=== PATIENT | female | born 1990 | race Caucasian/White ===

== ENCOUNTER 2020-04-21 21:06 | Inpatient (IN) | payer MEDICAID ==
[2020-04-21] MEDS ORDERED: Methylergonovine 0.2 MG/1 ML Amp IM PRN (22:47)
[2020-04-21] MEDS ORDERED: Lidocaine 1% 30 ML SDV INJECT PRN (22:47)
[2020-04-21] MEDS ORDERED: Ondansetron 4 MG/2 ML SDV IVPUSH PRN (22:47)
[2020-04-21] MEDS ORDERED: Carboprost Tromethamine 250 MCG/1 ML Amp IM PRN (22:47)
[2020-04-21] MEDS ORDERED: Sodium Chloride 0.9% 10 ML Syringe FLUSH PRN (22:47)
[2020-04-21] MEDS ORDERED: Tranexamic Acid 1,000 MG in Sodium Chloride 0.9% 100 ML IV PRN (22:47)
[2020-04-21] MEDS ORDERED: Misoprostol 400 MCG (4 X 100 MCG TAB) RECTAL PRN (22:47)
[2020-04-21] MEDS ORDERED: Oxytocin/Normal Saline 30 UNIT/500 ML BAG IV SCH (23:00)
[2020-04-21] MEDS ORDERED: Lactated Ringers 1,000 ML IV SCH (23:00)
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
[2020-04-22] MEDS ORDERED: Zolpidem 5 MG Tab PO PRN (04:27)
[2020-04-22] MEDS ORDERED: Simethicone 80 MG Tab.Chew PO PRN (04:27)
[2020-04-22] MEDS ORDERED: Benzocaine/Menthol 20%-0.5% Spray 56 GM Canister TOP PRN (04:27)
--- NOTE | 2020-04-22 04:55 | PCM.DEL ---
L & D Note - General Info Date of Service: 04/22/20 (Time of delivery 0419) Mother's Due Date: 05/03/20 (38w3d) - Delivery Note Labor: Spontaneous Delivery Outcome: Livebirth Delivery Method: Spontaneous Vaginal Delivery-Single Infant Delivery Mode: Spontaneous Presentation: Right Occiput Anterior (MARGARITA) Nuchal Cord: Present, Reduced Prep: Povidone-Iodine (Betadine Anesthesia Type: Nitrous Oxide Amniotic Fluid Description: Clear Episiotomy Type: None Laceration: None Placenta: Intact, Expressed Cord: 3 Vessels Estimated Blood Loss: 200 Resuscitation Needed: No Anderson: Bulb Syringe, Stimulated, Warmed Provider: Laura Dominguez Delivery Comments (Free Text/Narrative):: Valerie presented in early labor and progressed to 5-6 cm with BBOWI. AROM carried out and cxns were spaced. small amount of pitocin used and labor became effective, with patient proceeding to complete dilation. she pushed with one cxn, and delivered a viable 7lb 11oz male over intact perineum with one loop of nuchal cord, easily reduced on the perineum. baby delivered to mom's chest for skin to skin contact and bonding/nursing. 3VC clamped X 2, then cut by GRAY/Omar, and cord blood sample obtained. placenta delivered intact with gentle traction. fundus firm, flow minimal perineum and vagina intact. both mom and baby doing well. blood loss 100-200cc hmb - General Info Date of Service: 04/22/20 - Patient Data Vitals - Most Recent: Last Vital Signs Temp 98.4 F 04/21/20 23:40 Pulse 85 04/22/20 01:30 Resp 16 04/22/20 01:30 BP 128/72 04/22/20 01:30 Pulse Ox Weight - Most Recent: 247 lb Lab Results Last 24 Hours: Laboratory Results - last 24 hr 04/21/20 04/21/20 Range/Units 21:35 22:14 WBC 11.2 H (5.0-10.0) 10^3/uL RBC 3.68 L (4.2-5.4) 10^6/uL Hgb 11.6 L (12.0-16.0) g/dL Hct 34.7 L (37.0-47.0) % MCV 94.3 (80-100) fL MCH 31.5 (27.0-34.0) pg MCHC 33.4 (33.0-35.0) g/dL Plt Count 244 (150-450) 10^3/uL Neut % (Auto) 74.4 (42.2-75.2) % Lymph % (Auto) 16.9 L (20.5-50.1) % [place] % (Auto) 8.1 H (2-8) % Eos % (Auto) 0.4 L (1.0-3.0) % Baso % (Auto) 0.2 (0.0-1.0) % SARS CoV-2 RNA Rapid AKSHAT Negative (NEGATIVE) Med Orders - Current: Current Medications Acetaminophen (Tylenol) 650 mg PO Q4H PRN PRN Reason: Pain (Mild 1-3) and fever Benzocaine/Menthol (Dermoplast Pain Relief [place]) 0 gm TOP Q4H PRN PRN Reason: Perineal comfort measures Carboprost Tromethamine (Hemabate Ds) 250 mcg IM ASDIRECTED PRN PRN Reason: HEMORRHAGE Docusate Sodium (Colace) 100 mg PO BID PRN PRN Reason: Constipation Lactated Ringer's (Ringers, Lactated) 1,000 mls @ 125 mls/hr IV ASDIRECTED NESHA Last Admin: 04/22/20 02:31 Dose: 125 mls/hr Documented by: Tranexamic Acid 1,000 mg/ (Sodium Chloride) 110 mls @ 660 mls/hr IV ONETIME PRN PRN Reason: Bleeding Oxytocin/Sodium Chloride (Pitocin In Ns 30 Unit/500 Ml) 30 unit in 500 mls @ 2 mls/hr IV TITRATE NESHA; Protocol Last Titration: 04/22/20 04:44 Dose: 250 munits/min, 250 mls/hr Documented by: Ibuprofen (Motrin) 800 mg PO Q8H PRN PRN Reason: Mild Pain or Fever Lidocaine HCl (Xylocaine-Mpf 1%) 30 ml INJECT ASDIRECTED PRN PRN Reason: Perineal Repair Methylergonovine Maleate (Methergine) 0.2 mg IM ASDIRECTED PRN PRN Reason: Hemorrhage Misoprostol (Cytotec) 800 mcg RECTAL ASDIRECTED PRN PRN Reason: Hemorrhage Ondansetron HCl (Zofran) 4 mg IVPUSH Q4H PRN PRN Reason: Nausea/Vomiting Prenat Multivit/[place]/Iron/Folic Ac ( Plus Iron) 1 each PO DAILY NESHA Simethicone (Simethicone) 80 mg PO Q4H PRN PRN Reason: Gas Sodium Chloride (Saline Flush) 10 ml FLUSH ASDIRECTED PRN PRN Reason: Keep Vein Open Witch Heide (Medi-Pads) 1 each TOP Q4HR PRN PRN Reason: Perineal Comfort Measure Zolpidem Tartrate (Ambien) 5 mg PO BEDTIME PRN PRN Reason: Insomnia - Problem List & Annotations (1) Term SNOMED Code(s): 47298237 Code(s): Z34.90 - ENCNTR FOR SUPRVSN OF NORMAL , UNSP, UNSP TRIMESTER Status: Acute Current Visit: Yes (2) Labor established SNOMED Code(s): 98584873 Code(s): GDE6842 - Status: Acute Current Visit: Yes (3) Blood type A+ SNOMED Code(s): 678939740 Code(s): Z67.10 - TYPE A BLOOD, RH POSITIVE Status: Acute Current Visit: Yes (4) Rubella immune SNOMED Code(s): 361258111 Code(s): Z78.9 - OTHER SPECIFIED HEALTH STATUS Status: Acute Current Visit: Yes (5) Group B Streptococcus not isolated SNOMED Code(s): 590540930 Code(s): SWD1079 - Status: Acute Current Visit: Yes (6) Normal vaginal delivery SNOMED Code(s): 87027132, 863870754 Code(s): O80 - ENCOUNTER FOR FULL-TERM UNCOMPLICATED DELIVERY Status: Acute Current Visit: Yes (7) Mother currently breast-feeding SNOMED Code(s): 339556562 Code(s): Z39.1 - ENCOUNTER FOR CARE AND EXAMINATION OF LACTATING MOTHER Status: Acute Current Visit: Yes - Problem List Review Problem List Initiated/Reviewed/Updated: Yes - My Orders Last 24 Hours: My Active Orders 04/21/20 21:15 OB Check [OM.PC] Click to Edit EFM External [ Heart Monitor External] [WOMSER] Per Unit Routine 04/21/20 22:06 Admission Status [Patient Status] [ADT] Routine 04/21/20 22:47 Acetaminophen [TylenoL] 650 mg PO Q4H PRN Carboprost Tromethamine [Hemabate DS] 250 mcg IM ASDIRECTED PRN Lidocaine 1% [Xylocaine-MPF 1%] 30 ml INJECT ASDIRECTED PRN Methylergonovine [Methergine] 0.2 mg IM ASDIRECTED PRN Ondansetron [Zofran] 4 mg IVPUSH Q4H PRN Sodium Chloride 0.9% [Saline Flush] 10 ml FLUSH ASDIRECTED PRN Tranexamic Acid [Cyklokapron] 1,000 mg Sodium Chloride 0.9% [Normal Saline] 100 ml IV ONETIME miSOPROStoL [Cytotec] 800 mcg RECTAL ASDIRECTED PRN Resuscitation Status Routine 04/21/20 22:48 Communication Order [RC] ASDIRECTED Notify Provider Vital Signs OB [RC] ASDIRECTED Notify Provider [RC] PRN Up ad Cyndee [RC] ASDIRECTED Vital Signs [RC] PER UNIT ROUTINE Saline Lock Insert [OM.PC] Routine 04/21/20 22:50 Pump Management, Intrathecal [RC] ASDIRECTED 04/21/20 23:00 Lactated Ringers [Ringers, Lactated] 1,000 ml IV ASDIRECTED Oxytocin/Normal Saline [Pitocin in NS 30 UNIT/500 ML] 30 unit in 500 ml IV TITRATE 04/22/20 03:56 Nitrous Oxide Delivery [RC] ASDIRECTED OB Discontinue Nitrous Oxide [RC] ASDIRECTED 04/22/20 04:27 Benzocaine/Menthol [Dermoplast Pain Relief [place]] See Dose Instructions TOP Q4H PRN Docusate Sodium [Colace] 100 mg PO BID PRN Ibuprofen [Motrin] 800 mg PO Q8H PRN Simethicone 80 mg PO Q4H PRN Zolpidem [Ambien] 5 mg PO BEDTIME PRN witch Heide [Medi-Pads] 1 each TOP Q4HR PRN Assess Lochia [WOMSER] Per Unit Routine Assess Uterine Involution [WOMSER] Per Unit Routine Breast Pump [WOMSER] Per Unit Routine Ice Therapy [OM.PC] Per Unit Routine Perineal Care [OM.PC] Per Unit Routine Sitz Bath [OM.PC] Per Unit Routine 04/22/20 Breakfast Regular Diet [DIET] 04/22/20 09:00 Vit with Ca/FA/Iron [ Plus Iron] 1 each PO DAILY - Plan Plan:: Assessment: 30yo @38w2d in labor GBS negative blood type A+ rubella immune NST reactive COVID negative. mild anemia of with admit hgb 11.8 Plan: admit, continue to monitor consider AROM if indicated. routine orders placed anticipate vaginal delivery. with consideration of her increasing BP in clinic today, swelling, term , onset cxns, hx of last baby generous in size requiring VAVD--will be appropriate to have her delivered. hmb Delivery: 04-22-2020 @ 0419 viable male, vaginal delivery over intact perineum with one cxn. nuchal X 1, loose/easily reduced APGARs 9 & 9 BW 7lb 11oz, 3485g skin to skin after delivery . routine orders. b
[2020-04-22] MEDS: Ibuprofen 800 MG Tab PO PRN ×3 (05:36→21:01)
[2020-04-22] MEDS: Acetaminophen 325 MG Tab PO PRN ×2 (05:36→21:00)
[2020-04-22] MEDS: Docusate Sodium 100 MG Cap PO PRN ×2 (05:37→21:01)
[2020-04-22] MEDS: Prenatal Multivitamin with Calcium/Folic Acid/Iron Tab PO SCH (13:31)
[2020-04-22] MEDS ORDERED: Ferrous Sulfate 325 MG Tab PO STA (19:18)
[2020-04-23] MEDS ORDERED: Ferrous Sulfate 325 MG Tab PO SCH (08:00)
[2020-04-23] MEDS: Prenatal Multivitamin with Calcium/Folic Acid/Iron Tab PO SCH (08:34)
[2020-04-23] MEDS: Ibuprofen 800 MG Tab PO PRN (08:34)
[2020-04-23] MEDS: Docusate Sodium 100 MG Cap PO PRN (08:34)
[2020-04-23 08:54] VITALS: BP 113/73; PULSE 94
--- NOTE | 2020-04-23 12:57 | PCM.DCSUM1 ---
Discharge Summary - Hospital Course Free Text/Narrative:: Valerie is a delightful 30yo WF G6 now [id number] who presented in labor and went on to deliver a viable male infant @ 38w3d APGARs 8 & 9 BW 7lb 11oz, 3485g 04-22-2020 @ 0419 see admission, delivery and [facility] notes for details. hmb HPI Initial Comments: 30yo @38w2d in labor GBS negative blood type A+ rubella immune NST reactive COVID negative. mild anemia of with admit hgb 11.8 Brief History: Valerie presented in early labor and progressed to 5-6 cm with BBOWI. AROM carried out and cxns were spaced. small amount of pitocin used and labor became effective, with patient proceeding to complete dilation. she pushed with one cxn, and delivered a viable 7lb 11oz male over intact perineum with one loop of nuchal cord, easily reduced on the perineum. baby delivered to mom's chest for skin to skin contact and bonding/nursing. 3VC clamped X 2, then cut by GRAY/Omar, and cord blood sample obtained. placenta delivered intact with gentle traction. fundus firm, flow minimal. perineum and vagina intact. both mom and baby doing well. blood loss 100-200cc. b Diagnosis: Stroke: No - Discharge Data Discharge Date: 04/23/20 Discharge Disposition: Home, Self-Care 01 Condition: Good - Referral to Home Health Primary Care Physician: Vick Harrison - Discharge Diagnosis/Problem(s) (1) Term SNOMED Code(s): 31665223 ICD Code: Z34.90 - ENCNTR FOR SUPRVSN OF NORMAL , UNSP, UNSP TRIMESTER Status: Acute Current Visit: Yes (2) Labor established SNOMED Code(s): 25237042 ICD Code: WSH6233 - Status: Acute Current Visit: Yes (3) Blood type A+ SNOMED Code(s): 480303045 ICD Code: Z67.10 - TYPE A BLOOD, RH POSITIVE Status: Acute Current Visit: Yes (4) Rubella immune SNOMED Code(s): 154073929 ICD Code: Z78.9 - OTHER SPECIFIED HEALTH STATUS Status: Acute Current Visit: Yes (5) Group B Streptococcus not isolated SNOMED Code(s): 287113057 ICD Code: GQD4207 - Status: Acute Current Visit: Yes (6) Normal vaginal delivery SNOMED Code(s): 77412112, 002099911 ICD Code: O80 - ENCOUNTER FOR FULL-TERM UNCOMPLICATED DELIVERY Status: Acute Current Visit: Yes (7) Mother currently breast-feeding SNOMED Code(s): 870036086 ICD Code: Z39.1 - ENCOUNTER FOR CARE AND EXAMINATION OF LACTATING MOTHER Status: Acute Current Visit: Yes - Patient Summary/Data Complications: none Hospital Course: NST reactive on admit COVID negative hgb 11.8 course uneventful perineum was intact fundus remained firm flow minimal pumping and using breast milk remained afebrile with stable VS eating, ambulating and voiding well ready for discharge on PPD #1 home today 04-23-2020 in good condition follow up for 6 week check andsooner prn. all questions answered. routine discharge orders. 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 hmb - Patient Instructions Diet: Usual Diet as Tolerated Activity: As Tolerated Driving: Do Not Drive Showering/Bathing: May Shower Notify Provider of: Fever, Increased Pain, Swelling and Redness, Drainage, Nausea and/or Vomiting - Discharge Plan *PRESCRIPTION DRUG MONITORING PROGRAM REVIEWED*: Not Applicable *COPY OF PRESCRIPTION DRUG MONITORING REPORT IN PATIENT [place]: Not Applicable Patient Handouts: Baby Blues, Care After Vaginal Delivery - Discharge Summary/Plan Comment DC Time >30 min.: No Discharge Summary/Plan Comment: routine orders and instructions. may use fenugreek and Mother's milk tea as instructed follow up 6 week check and sooner prn. hmb - Patient Data Vitals - Most Recent: Last Vital Signs Temp 97.9 F 04/23/20 08:00 Pulse 94 04/23/20 08:00 Resp 18 04/23/20 08:00 BP 113/73 04/23/20 08:00 Pulse Ox 99 04/23/20 08:00 Weight - Most Recent: 247 lb Med Orders - Current: Current Medications Acetaminophen (Tylenol) 650 mg PO Q4H PRN PRN Reason: Pain (Mild 1-3) and fever Last Admin: 04/22/20 21:00 Dose: 650 mg Documented by: Benzocaine/Menthol (Dermoplast Pain Relief [place]) 0 gm TOP Q4H PRN PRN Reason: Perineal comfort measures Last Admin: 04/22/20 05:38 Dose: 1 spray Documented by: Carboprost Tromethamine (Hemabate Ds) 250 mcg IM ASDIRECTED PRN PRN Reason: HEMORRHAGE Docusate Sodium (Colace) 100 mg PO BID PRN PRN Reason: Constipation Last Admin: 04/23/20 08:34 Dose: 100 mg Documented by: Ferrous Sulfate (Ferrous Sulfate) 325 mg PO WITHBREAKFAST [facility] Last Admin: 04/23/20 08:34 Dose: 325 mg Documented by: Lactated Ringer's (Ringers, Lactated) 1,000 mls @ 125 mls/hr IV ASDIRECTED NESHA Last Admin: 04/22/20 02:31 Dose: 125 mls/hr Documented by: Tranexamic Acid 1,000 mg/ (Sodium Chloride) 110 mls @ 660 mls/hr IV ONETIME PRN PRN Reason: Bleeding Oxytocin/Sodium Chloride (Pitocin In Ns 30 Unit/500 Ml) 30 unit in 500 mls @ 2 mls/hr IV TITRATE [facility]; Protocol Last Titration: 04/22/20 06:25 Dose: 0 munits/min, 0 mls/hr Documented by: Ibuprofen (Motrin) 800 mg PO Q8H PRN PRN Reason: Mild Pain or Fever Last Admin: 04/23/20 08:34 Dose: 800 mg Documented by: Lidocaine HCl (Xylocaine-Mpf 1%) 30 ml INJECT ASDIRECTED PRN PRN Reason: Perineal Repair Methylergonovine Maleate (Methergine) 0.2 mg IM ASDIRECTED PRN PRN Reason: Hemorrhage Misoprostol (Cytotec) 800 mcg RECTAL ASDIRECTED PRN PRN Reason: Hemorrhage Ondansetron HCl (Zofran) 4 mg IVPUSH Q4H PRN PRN Reason: Nausea/Vomiting Prenat Multivit/[employer]/Iron/Folic Ac ( Plus Iron) 1 each PO DAILY [facility] Last Admin: 04/23/20 08:34 Dose: 1 each Documented by: Simethicone (Simethicone) 80 mg PO Q4H PRN PRN Reason: Gas Sodium Chloride (Saline Flush) 10 ml FLUSH ASDIRECTED PRN PRN Reason: Keep Vein Open Witch [place]ide (Medi-Pads) 1 each TOP Q4HR PRN PRN Reason: Perineal Comfort Measure Zolpidem Tartrate (Ambien) 5 mg PO BEDTIME PRN PRN Reason: Insomnia Discontinued Medications Ferrous Sulfate (Ferrous Sulfate) 325 mg PO WITHBREAKFAST STA Stop: 04/22/20 19:19 Last Admin: 04/22/20 21:01 Dose: 325 mg Documented by:
== END 2020-04-23 13:40 | disposition home or self-care (01) | DRG 807 ==
LOC: DL.OBCHECK 21:06 → DL.OB 22:06 → OBSVTOIN 04-22 04:19
PROVIDERS: ADMIT Family Medicine; ATTEND Family Medicine
PROC: 10E0XZZ Delivery of Products of Conception, External Approach (ICD-10-PCS; principal; 2020-04-22)
PROC: 10907ZC Drainage of Amniotic Fluid, Therapeutic from Products of Conception, Via Natural or Artificial Opening (ICD-10-PCS; 2020-04-22)
DX: O99.02 Anemia complicating childbirth (principal); Z37.0 Single live birth; D64.9 Anemia, unspecified; Z3A.38 38 weeks gestation of pregnancy; Z20.828 Contact with and (suspected) exposure to other viral communicable diseases; O69.81X0 Labor and delivery complicated by cord around neck, without compression, not applicable or unspecified; Z28.82 Immunization not carried out because of caregiver refusal
CPT/HCPCS: 36415; 59025; 59409; 85025; A9270-GY; J2590; J7120; U0002